=== PATIENT | male | born 1980 | race Caucasian/White ===

== ENCOUNTER 2025-07-07 08:23 | Emergency (ER) | payer SELFPAY ==
[2025-07-07] MEDS ORDERED: HYDROcodone/Acetaminophen 10/325 mg Tablet ONE (10:01)
[2025-07-07] MEDS ORDERED: Dexamethasone 10 MG/ML VIAL ONE (10:31)
== END 2025-07-07 11:00 | disposition home or self-care (01) ==
LOC: NAV ERS 08:23
DX: M25.512 Pain in left shoulder (principal); F17.210 Nicotine dependence, cigarettes, uncomplicated
CPT/HCPCS: 96372; 99283; J1100; J1885